=== PATIENT | female | born 1965 | race Caucasian/White ===

== ENCOUNTER → 2020-01-02 12:29 | Outpatient (CLI) | payer OTHER, SELFPAY ==
--- NOTE | ~2020-01-02 | MM_ITS ---
EXAMINATION: MM screening [facility] BI w sena HISTORY: Screening TECHNIQUE: Craniocaudal and mediolateral oblique 3-D tomosynthesis images were obtained and synthetic 2-D images were generated. CAD analysis was submitted and interpreted. COMPARISON: Comparison to multiple prior studies sequentially, with oldest reviewed study dated 10/04. BREAST PARENCHYMAL COMPOSITION: There are scattered areas of fibroglandular density. FINDINGS: There is no evidence of suspicious mass, calcification, or architectural distortion to sugg est malignancy in either breast. There has been no suspicious interval change. IMPRESSION: 1. No mammographic evidence of malignancy. 2. Recommend routine screening mammography in one year. BI-RADS Category 1: Negative Reviewed, dictated and finalized at location A.
== END ==
PROVIDERS: Visit Provider Nurse Practitioner Obstetrics & Gynecology
DX: Z12.31 Encounter for screening mammogram for malignant neoplasm of breast (principal)
CPT/HCPCS: 77063; 77067

== ENCOUNTER 2020-03-19 12:32 | Outpatient (CLI) | payer OTHER, SELFPAY ==
--- NOTE | 2020-03-19 12:35 | ECHO_ITS ---
Patient Info Name: Shobha Moore Age: 54 years : 1965 Gender: Female Ht: 66 in Wt: 165 lbs BSA: 1.88 m2 HR: 78 bpm BP: 126 / 78 mmHg Technical Quality: Good Exam Date: 03/19/2020 12:55 PM Exam Location: [facility] Pulmonary Patient Status: Outpatient Admit Date: 03/19/2020 Staff Ordering Physician: Emi Link Atg Java Developer: Aure Florez RDCS Attending Provider: Emi Link Exam Type: CA echo doppler color flow Study Info Complete two-dimensional, color flow and Doppler transthoracic echocardiogram is performed. Summary 1. Complete two-dimensional, color flow and Doppler transthoracic echocardiogram is performed. 2. Left ventricular chamber dimension is normal. 3. Left ventricular systolic function is normal, estimated at 60-65%. 4. The left ventricular diastolic function is grade I diastolic dysfunction. 5. E/e' 13 is mildly elevated. 6. Left atrial chamber dimension is mildly enlarged. 7. There is trace mitral valve regurgitation. 8. There is trace tricuspid valve regurgitation. 9. No pulmonary hypertension, estimated pulmonary arterial systolic pressure is 23 mmHg. Left Ventricle E/e' 13 is mildly elevated. Left ventricular chamber dimension is normal. Left ventricular systolic function is normal, estimated at 60-65%. The left ventricular diastolic function is grade I diastolic dysfunction. Right Ventricle Right ventricular chamber dimension is normal. Right ventricular systolic function is normal. Left Atria Left atrial chamber dimension is mildly enlarged. Right Atria Right atrial chamber dimension is normal. Aortic Valve The aortic valve is trileaflet. There is no aortic valve stenosis. There is no aortic valve regurgitation. Pulmonic Valve There is no pulmonic regurgitation. Mitral Valve There is no mitral valve stenosis. There is trace mitral valve regurgitation. Tricuspid Valve There is trace tricuspid valve regurgitation. No pulmonary hypertension, estimated pulmonary arterial systolic pressure is 23 mmHg. Pericardium/Pleural There is no pericardial effusion. Inferior Vena Cava Normal inferior vena cava with >50% collapse upon inspiration consistent with normal right atrial pressure, 5 mmHg. Aorta The aortic root size at the sinus of Valsalva is normal. Left Ventricular Outflow Tract Name Value Normal LVOT 2D LVOT Diameter 2.0 cm LVOT Doppler LVOT Peak Gradient 4 mmHg LVOT Mean Gradient 2 mmHg LVOT VTI 20 cm LVOT VTI/AV VTI Ratio 0.8 LVOT Stroke Volume 67 ml LVOT CO 14.6 l/min LVOT CI 7.8 l/min/m2 Pulmonic Valve Name Value Normal PV Doppler PV Peak Gradient
--- NOTE | 2020-03-24 12:31 | WPDHOLTEREM ---
Holter/Event Monitor Holter/Event Monitor Date of procedure: 03/19/20 Procedure Type: 24 hour holter monitor Indications: Cardiac arrhythmia Conclusion: 1. 24 hour holter monitor on 03/19/20. 2. Underlying rhythm is sinus rhythm. HR range 55-128 bpm; average HR 80 bpm. 3. There are 8 premature supraventricular complexes. No supraventricular tachycardia. 4. There are 8,324 premature ventricular complexes, 55 ventricular couplets, 281 ventricular bigeminy and 16,382 ventricular trigeminy. No ventricular tachycardia. 5. No sinoatrial or atrioventricular blocks. No significant pauses greater than 2 seconds. 6. No symptoms available for correlation.
== END 2020-03-19 12:33 | disposition home or self-care (01) ==
LOC: ANHCARD 12:33
PROVIDERS: PCP Family Medicine; Visit Provider Nurse Practitioner Family
DX: I49.3 Ventricular premature depolarization (principal)
CPT/HCPCS: 93225; 93226; 93306

== ENCOUNTER 2020-05-13 09:21 | Outpatient (CLI) | payer OTHER, SELFPAY ==
--- NOTE | 2020-05-13 09:43 | EST_ITS ---
Patient Info Name: Shobha Moore Age: 54 years : 1965 Gender: Female Ht: 66 in Wt: 165 lbs BSA: 1.88 m2 HR: 87 bpm BP: 128 / 83 mmHg Exam Date: 05/13/2020 9:47 AM Exam Location: [facility] Stress Patient Status: Outpatient Admit Date: 05/13/2020 Staff Ordering Physician: Ankur Cardoza DO Attending Provider: Ankur Cardoza DO Exercise Technologist: Lori Arriaga RDCS Exercise Physician: Ankur Cardoza DO Exam Type: CA stress test treadmill Study Info Indications R00.2 - Palpitations A treadmill exercise stress test was performed. Summary 1. 1. Negative Rubio exercise stress test for ischemic ST changes by ECG criteria. 2. 2. Mildly reduced functional capacity, achieving 8 METs of workload. 3. 3. Rapid HR response to exercise. 4. 4. Appropriate HR recovery at 1 minute post exercise. 5. 5. No imaging with stress testing. 6. 6. Patient informed of the above results. Protocol: Rubio Stress ECG Details Stage: REST Duration (min): 1 min : 31 sec Speed (mph): 0.0 Grade (%): 0 HR (bpm): 86 SBP (mmHg): 128 DBP (mmHg): 83 METS: --- Stage: REST Duration (min): 7 min : 56 sec Speed (mph): 0.0 Grade (%): 0 HR (bpm): 89 SBP (mmHg): 128 DBP (mmHg): 83 METS: --- Stage: STAGE 1 Duration (min): 1 min : 0 sec Speed (mph): 1.7 Grade (%): 10 HR (bpm): 115 SBP (mmHg): 128 DBP (mmHg): 83 METS: --- Stage: STAGE 1 Duration (min): 2 min : 0 sec Speed (mph): 1.7 Grade (%): 10 HR (bpm): 139 SBP (mmHg): 128 DBP (mmHg): 83 METS: --- Stage: STAGE 1 Duration (min): 3 min : 0 sec Speed (mph): 1.7 Grade (%): 10 HR (bpm): 151 SBP (mmHg): 170 DBP (mmHg): 89 METS: --- Stage: STAGE 2 Duration (min): 1 min : 0 sec Speed (mph): 2.5 Grade (%): 12 HR (bpm): 159 SBP (mmHg): 170 DBP (mmHg): 89 METS: --- Stage: STAGE 2 Duration (min): 1 min : 38 sec Speed (mph): 2.5 Grade (%): 12 HR (bpm): 163 SBP (mmHg): 170 DBP (mmHg): 89 METS: --- Stage: RECOVERY Duration (min): 0 min : 21 sec Speed (mph): 0.0 Grade (%): 0 HR (bpm): 158 SBP (mmHg): 170 DBP (mmHg): 85 METS: --- Stage: RECOVERY Duration (min): 1 min : 21 sec Speed (mph): 0.0 Grade (%): 0 HR (bpm): 132 SBP (mmHg): 167 DBP (mmHg): 87 METS: --- Stage: RECOVERY Duration (min): 2 min : 21 sec Speed (mph): 0.0 Grade (%): 0 HR (bpm): 118 SBP (mmHg): 167 DBP (mmHg): 87 METS: --- Stage: RECOVERY Duration (min): 3 min : 21 sec Speed (mph): 0.0 Grade (%): 0 HR (bpm): 101 SBP (mmHg): 169 DBP (mmHg): 85 METS: --- Stage: RECOVERY Duration (min): 3 min : 39 sec Speed (mph): 0.0 Grade (%): 0 HR (bpm): 100 SBP (mmHg): 169 DBP (mmHg): 85 METS: --- Stage: RECOVERY D
== END 2020-05-13 09:22 | disposition home or self-care (01) ==
PROVIDERS: PCP Family Medicine; Visit Provider Internal Medicine Cardiovascular Disease
DX: R00.2 Palpitations (principal)
CPT/HCPCS: 93017

== ENCOUNTER → 2021-01-05 13:16 | Outpatient (CLI) | payer OTHER, SELFPAY ==
--- NOTE | ~2021-01-05 | MM_ITS ---
EXAMINATION: MM screening [facility] BI w sena HISTORY: Screening TECHNIQUE: Craniocaudal and mediolateral oblique 3-D tomosynthesis images were obtained and synthetic 2-D images were generated. CAD analysis was submitted and interpreted. COMPARISON: Comparison to multiple prior studies sequentially, with oldest reviewed study dated 10/10. BREAST PARENCHYMAL COMPOSITION: Breast composed of scattered areas of fibroglandular density. FINDINGS: There is no evidence of suspicious mass, calcification, or architectural distortion to sugg est malignancy in either breast. There has been no suspicious interval change. IMPRESSION: 1. No mammographic evidence of malignancy. 2. Recommend routine screening mammography in one year. BI-RADS Category 1: Negative Reviewed, dictated and finalized at location A.
== END ==
PROVIDERS: PCP Family Medicine; Visit Provider Nurse Practitioner Obstetrics & Gynecology
DX: Z12.31 Encounter for screening mammogram for malignant neoplasm of breast (principal)
CPT/HCPCS: 77063; 77067

== ENCOUNTER → 2022-01-18 14:00 | Outpatient (CLI) | payer OTHER, SELFPAY ==
--- NOTE | ~2022-01-18 | MM_ITS ---
EXAMINATION: MM screening [facility] BI w sena HISTORY: Screening mammogram TECHNIQUE: Craniocaudal and mediolateral oblique 3-D tomosynthesis images were obtained and synthetic 2-D images were generated. CAD analysis was submitted and interpreted. COMPARISON: 01/05/2021, 01/02/2020, 11/17/2018 BREAST PARENCHYMAL COMPOSITION: There are scattered areas of fibroglandular density. FINDINGS: No suspicious mass, calcification, or architectural distortion are identified in either elvie ast to suggest malignancy. There has been no suspicious interval change. IMPRESSION: 1. No mammographic evidence of malignancy. 2. Recommend routine screening mammography in one year. BI-RADS Category 1: Negative Reviewed, dictated and finalized at location A.
== END ==
PROVIDERS: PCP Family Medicine; Visit Provider Nurse Practitioner Obstetrics & Gynecology
DX: Z12.31 Encounter for screening mammogram for malignant neoplasm of breast (principal)
CPT/HCPCS: 77063; 77067

== ENCOUNTER → 2023-02-08 14:42 | Outpatient (CLI) | payer OTHER, SELFPAY ==
--- NOTE | ~2023-02-08 | MM_ITS ---
EXAMINATION: MM screening [facility] BI w sena HISTORY: Screening mammogram TECHNIQUE: Craniocaudal and mediolateral oblique 3-D tomosynthesis images were obtained and synthetic 2-D images were generated. CAD analysis was submitted and interpreted. COMPARISON: 01/18/2022, 01/05/2021, 01/02/2020 BREAST PARENCHYMAL COMPOSITION: There are scattered areas of fibroglandular density. FINDINGS: No suspicious mass, calcification, or architectural distortion are identified in either elvie ast to suggest malignancy. There has been no suspicious interval change. IMPRESSION: 1. No mammographic evidence of malignancy. 2. Recommend routine screening mammography in one year. BI-RADS Category 1: Negative Reviewed, dictated and finalized at location A. [employer] ATTORNEY
== END ==
PROVIDERS: PCP Nurse Practitioner Obstetrics & Gynecology; Visit Provider Nurse Practitioner Obstetrics & Gynecology
DX: Z12.31 Encounter for screening mammogram for malignant neoplasm of breast (principal)
CPT/HCPCS: 77063; 77067